=== PATIENT | male | born 1980 | race Caucasian/White ===

== ENCOUNTER 2023-07-07 10:47 | Outpatient (REF) | payer MEDICAID, SELFPAY ==
[2023-07-07 12:55] LABS: MANUAL DIFF FLAG NO
[2023-07-07 13:06] LABS: Estimated Average Glucose 126 mg/dL
[2023-07-07 13:08] LABS: Basophils Absolute Auto 0.1 X10*3/uL (0.0-0.2); Basophils Percent Auto 0.8 % (0-2); Eosinophils Absolute Auto 0.1 X10*3/uL (0.0-0.4); Eosinophils Percent Auto 1.4 % (0-4); Hematocrit 47.6 % (42.0-52.0); Hemoglobin 15.9 g/dl (14.0-18.0); Imm Gran Abs Auto 0.03 X10*3/uL (0.00-0.03); Imm Gran Pct Auto 0.4 % (0.0-0.4); Lymphocytes Absolute Auto 2.7 X10*3/uL (1.2-4.9); Lymphocytes Percent Auto 34.1 % (20-40); Mean Corpuscular HGB Conc 33.4 g/dl (31.0-36.0); Mean Corpuscular Hemoglobin 31.4 pg (27.0-33.0); Mean Corpuscular Volume 93.9 fL (80.0-98.0); Mean Platelet Volume 11.3 fL (9.4-12.4); Monocytes Percent Auto 12.3 % (2-11); Platelet Count 169 X10*3/uL (160-400); Red Blood Count 5.07 X10*6/uL (4.60-5.80); Red Cell Distribution Width 12.3 % (11.0-16.0); White Blood Count 7.8 X10*3/uL (4.8-10.8)
[2023-07-07 13:26] LABS: Alanine Aminotransferase 45 U/L (0-40); Albumin Level 4.3 g/dL (3.5-5.0); Alkaline Phosphatase 86 U/L (39-117); Anion Gap 11 (12-20); Aspartate Amino Transferase 31 U/L (5-37); Bilirubin Total 0.7 mg/dL (0.0-1.0); Blood Urea Nitrogen 13 mg/dL (9-16); Calcium 9.6 mg/dL (8.4-10.2); Carbon Dioxide 27 mmol/L (22-29); Chloride 106 mmol/L (96-108); Cholesterol 204 mg/dL (<200); Estimated Glomerular Filt Rate > 60; Glucose Random 111 mg/dL (60-115); HDL Cholesterol 43 mg/dL (>40); LDL Cholesterol Calculated 143 mg/dL (<100); Potassium 4.3 mmol/L (3.3-5.1); Sodium 140 mmol/L (135-145); Total Protein 8.2 g/dL (6.5-8.0); Triglycerides 94 mg/dL (<150)
[2023-07-07 13:43] LABS: TSH reflex Free T4 1.33 uIU/mL (0.32-4.0)
[2023-07-07 13:51] LABS: PSA,Total (Free>4and<10) 0.45 ng/mL (0.00-4.00)
[2023-07-08 08:10] LABS: HIV AB/AG Nonreactive (Nonreactive); HIV Num 1 0.07 S/CO (0.00-0.99); ~HepC Num1 0.19 S/CO (0.00-0.79); ~Hepatitis C Antibody Nonreactive (Nonreactive)
== END 2023-07-07 10:48 | disposition home or self-care (01) ==
LOC: HO.CHCLDS 10:47
PROVIDERS: Visit Provider Family Medicine
DX: E66.01 Morbid (severe) obesity due to excess calories (principal); Z13.29 Encounter for screening for other suspected endocrine disorder; Z12.5 Encounter for screening for malignant neoplasm of prostate
CPT/HCPCS: 36415; 80053; 80061; 83036; 84153; 84443; 85025; 86803; 87389

== ENCOUNTER 2023-09-01 08:07 | Outpatient (AMB) | payer BC, SELFPAY ==
[2023-09-01 08:19] VITALS: BMI 53.1
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
== END 2023-09-01 08:34 | disposition home or self-care (01) ==
PROVIDERS: Visit Provider Orthopaedic Surgery
DX: M25.562 Pain in left knee (principal)
CPT/HCPCS: 99203

== ENCOUNTER 2023-09-01 09:01 | Outpatient (REF) | payer MEDICAID, SELFPAY ==
--- NOTE | ~2023-09-01 | XR_ITS ---
EXAMINATION: Bilateral knee x-rays CLINICAL INFORMATION: Pain in both knees COMPARISON: None. TECHNIQUE: 3 views of each knee FINDINGS: Right knee: There are marginal osteophytes about all compartments without slight joint space narrowing of the medial compartment. No effusion. Left knee: Small marginal osteophytes about the lateral compartment and patellofemoral compartment without joint space narrowing. Small effusion. XR/XR knee LT 3V IMPRESSION: RIGHT KNEE: Mild osteoarthritis. LEFT KNEE: Mild osteoarthritis. Small effusion
--- NOTE | ~2023-09-01 | XR_ITS ---
EXAMINATION: Bilateral knee x-rays CLINICAL INFORMATION: Pain in both knees COMPARISON: None. TECHNIQUE: 3 views of each knee FINDINGS: Right knee: There are marginal osteophytes about all compartments without slight joint space narrowing of the medial compartment. No effusion. Left knee: Small marginal osteophytes about the lateral compartment and patellofemoral compartment without joint space narrowing. Small effusion. XR/XR knee RT 3V IMPRESSION: RIGHT KNEE: Mild osteoarthritis. LEFT KNEE: Mild osteoarthritis. Small effusion
== END 2023-09-01 09:02 | disposition home or self-care (01) ==
LOC: HO.HOSX 09:01
PROVIDERS: Visit Provider Orthopaedic Surgery
DX: M17.0 Bilateral primary osteoarthritis of knee (principal)
CPT/HCPCS: 73562; 99202

== ENCOUNTER 2024-06-02 15:48 | Outpatient (REF) | payer BC, SELFPAY ==
--- OUTSIDE RECORDS SUMMARY | 2024-06-02 15:49 | XMS_ITS | Clinical Summary ---
Author Organization [employer] Address [address] [facility] [address] [place] [address] Care Team Providers Care Facilities Engineer Name Role Phone Barbie Stauffer MD Primary Care Provider [phone] Allergies No known active allergies Medications LORazepam (Ativan) 1 MG tablet Take 1 tablet (1 mg) by mouth 1 (one) time for 1 dose. 1 tablet 07/07/2023 Active Semaglutide-Weig ht Management (Wegovy) 0.25 MG/0.5ML solution auto-injectorInd ications:Morbid obesity (CMS/HCC) Inject 0.25 mg under the skin 1 (one) time per week. 2 mL 07/07/2023 Active Active Problems Problem Noted Date Diagnosed Date Morbid obesity 07/07/2023 Assessment & Plan (07/07/2023 9:36 PM EDT): Discussed calorie deficit, recommended reduction of 20-30% of maintenance calories; machine shop apprentice referral offered. Recommended to decrease soda and sugary beverage consumption. Recommended at least 20 g per meal of protein to assist with satiety. Recommended at least 150 min/week of moderate intensity exercise. Ordered referral to machine shop apprentice Labs: CBC, Comprehensive Metabolic Panel, Lipid panel, A1C, TSH, HIV, Hep C Obstructive sleep apnea syndrome 07/07/2023 Assessment & Plan (07/07/2023 9:37 PM EDT): Referred for sleep test Chronic pain of both knees 07/07/2023 Overview (07/07/2023): Reports following with [facility] Assessment & Plan (07/07/2023 9:38 PM EDT): Reports following with [facility]. Prescribed Lorazepam and Wegovy for continuous of weight loss. Other chest pain 07/07/2023 Assessment & Plan (07/07/2023 10:03 AM EDT): Intermittent episodes of chest pain when he is resting after work but associated with R hand numbness Encounters Date Type Department Care Team Description 06/02/2024 3:00 PM EST Office Visit [facility] PEDS [address] [place] [address] Kidney stones (Primary Dx); Gross hematuria 06/02/2024 Travel 06/02/2024 Telephone [facility] MEDICINE [address] [place], [place] [phone] Barbie Stauffer MD Nurse Triage (/) from Last 3 Months Immunizations Name Administration Dates Next Due Influenza injectable quadrivalent preservative f ree 06/13/2015 Tdap 06/13/2015 Social History Tobacco Use Types Packs/Day Years Used Date Smoking Tobacco: Former Cigarettes 2 10 Passive Smoke Exposure: Never Smokeless Tobacco: Never Tobacco Cessation:Counseling Given: Not Answered Depression Answer Date Recorded Patient Health Questionnaire-9 Score 2 07/07/2023 Patient Health Questionnaire-9 Score 2 07/07/2023 Last PHQ-9: Questionnaire Data Not on file 0 07/07/2023 Housing Stability Answer Date Recorded What is your housing situation today? I have saúl cantu 07/07/[address] you li ve. Do you have problems with any of the following? None of the above 07/07/2023 Food Insecurity Answer Date Recorded Within the past 12 months, y ou worried that your food would run out before you got money to buy more: Never True 07/07/2023 Within the past 12 months,th e food you bought just didn't last and you didn't have enough money to get more: Never True Transportation Answer Date Recorded In the past 12 months, has l ack of transportation kept you from medical appts, meetings, work or from getting things needed for daily living? No 07/07/2023 Utilities Answer Date Recorded In the past 12 months, has t he electric, gas, oil or water company threatened to shut off services in your home? No 07/07/2023 Depression Answer Date Recorded Patient Health Questionnaire-2 Score 2 07/07/2023 Sex and Gender Information Value Date Recorded Sex Assigned at Male 02/16/2022 10:18 AM EDT Legal Sex Male 10:18 AM EDT Gender Identity Male 02/16/2022 10:18 AM EDT Sexual Orientation Straight 02/16/2022 10 :18 AM EDT Last Filed Vital Signs Vital Sign Reading Time Taken Comments Blood Pressure 142/87 06/02/2024 3:25 PM EST Pulse 80 06/02/2024 3:25 PM EST Temperature 36.2 ??C (97.1 ??F) 06/02/2024 3:25 PM ES T Respiratory Rate 20 06/02/2024 3:25 PM EST Oxygen Saturation 96% 06/02/2024 3:25 PM EST Inhaled Oxygen Concentration - - Weight 136 kg (299 lb) 06/02/2024 3:25 PM EST Height 167.6 cm (5' 6 ) 06/02/2024 3:25 PM EST Body Mass Index 48.26 06/02/2024 3:25 PM EST Plan of Treatment Health Maintenance Due Date Last Done Comments Alcohol/Substance Use Screening 1993 Family Planning (PISQ) 1996 Hepatitis B Vaccines (1 of 3 - 19+ 3-dose series) 2000 COVID-19 Vaccine (2023-2 5 season) 2023 Influenza Vaccine (#1) 2023 06/13/2015 Depression Screening 07/06/2024 07/07/2023, 07/07/2023 Diabetes: Hemoglobin A1C 07/06/2024 07/07/2023 SDOH Screening 07/06/2024 07/07/2023 Tobacco Screening 07/06/2024 07/07/2023 DTaP/Tdap/Td Vaccines (2 - T d or Tdap) 06/13/2025 06/13/2015 Lipid Panel 07/06/2028 07/07/2023 Zoster Vaccines (1 of 2) 07/17/2031 RSV Patients and Patients Aged 60 years or older (1 - 1-dose 75+ series) 2056 HIV Screening Completed 07/07/2023 Hepatitis C Screening Completed 07/07/2023 HIB Vaccines Aged Out No longer eligi ble based on patient's age to complete this topic HPV Vaccines Aged Out No longer eligi ble based on patient's age to complete this topic Hepatitis A Vaccines Aged Out No long er eligible based on patient's age to complete this topic IPV Vaccines Aged Out No longer eligi ble based on patient's age to complete this topic Meningococcal Vaccine Aged Out No marlo laci eligible based on patient's age to complete this topic Pneumococcal Vaccine: Pediatrics (0 to 5 Years) and At-Risk Patients (6 to 49) Years) Aged Out No longer eligible b ased on patient's age to complete this topic RSV under 20 months Aged Out No longe r eligible based on patient's age to complete this topic Rotavirus Vaccines Aged Out No longer eligible based on patient's age to complete this topic Procedures Procedure Name Priority Date/Time Associated Diagnosis Comments HEPATITIS C AB W/REFL TO HCV RNA, QN, PCR Routine 07/07/2023 10:50 AM EDT Morbid obesity (CMS/HCC) HIV 1/2 ANTIGEN/ANTIBODY, FOURTH GENERATION W/RFL Routine 07/07/2023 10:50 AM EDT Morbid obesity (CMS/HCC) HEMOGLOBIN A1C Routine 07/07/2023 10:50 AM EDT Morbid obesity (CMS/HCC) Screening for endocrine disorder LIPID PANEL, STANDARD Routine 07/07/2023 10:50 AM EDT Morbid obesity (CMS/HCC) from Last 3 Months or Most Recently Relevant to Health Maintenance Results * Hepatitis C Antibody with Reflex to HCV, RNA, Quantitative, Real-Time PCR (07/07/2023 10:50 AM EDT) Hepatitis C Antibody Nonreactive Nonreactive [facility] Comment:Antibodies to HCV no t detected; does not exclude early acuteHCV infection. Blood Venous blood specimen / Unknown 07/07/2023 10:50 AM EDT 07/07/2023 1:02 PM EDT us Barbie Stauffer MD LAB BLOOD ORDERABLES Final Re sult [facility] [address] [place] [phone] * HIV-1/2 Antigen and Antibodies, Fourth Generation, with Reflexes (07/07/2023 10:50 AM EDT) HIV AB/AG Nonreactive Nonreactive [facility] Comment:HIV-1 p24 Ag and/or HIV-1/HIV-2 Ab not detected.A test result that is nonreactive does not exclude thepossibility of exposure to or infection with HIV-1 and/orHIV-2. Nonreactive results in this assay for individualswith prior exposure to HIV-1 and/or HIV-2 may be due toantigen and antibody levels that are below the limit ofdetection of this assay.The [employer] HIV Ag/Ab Combo assay result andsupplemental assay results should be interpreted inconjunction with the patient's clinical presentation,history and other laboratory results. If the results areinconsistent with clinical evidence, additional testing issuggested to confirm the result. Blood Venous blood specimen / Unknown 07/07/2023 10:50 AM EDT 07/07/2023 1:02 PM EDT us Barbie Stauffer MD LAB BLOOD ORDERABLES Final Re sult [facility] [address] [place] [phone] * Hemoglobin A1c (07/07/2023 10:50 AM EDT) Hemoglobin A1c 6.0 <6.0 % [facility] Comment:Hemoglobin A1C Refer ence Range Adults: 4.8 - 6.0 % Non diabetic: < 6.0 % Goal: < 7.0 %Additional Action Suggested: > 8.0 %Note: Hemoglobin A1c results are invalid for patients with abnormal amounts of HbF. Blood transfusions may impact the HbA1c concentration in the patient sample. Estimated Average Glucose 126 mg/dL [facility] Comment:eAG = Estimated ave rage glucose which is %A1C expressed asaverage glucose, using the formula of the L5D-AhmsbecNonfoua Glucose study (ADAG), Diabetes Care, Vol.31,#8,Nov. 2007 Blood Venous blood specimen / Unknown 07/07/2023 10:50 AM EDT 07/07/2023 12:52 PM EDT us Barbie Stauffer MD LAB BLOOD ORDERABLES Final Re sult Performing Organization Address [facility] Co de Phone Number [facility] [address] [place] [phone] * (ABNORMAL) Lipid Panel, Standard (07/07/2023 10:50 AM EDT) Triglycerides 94 <150 mg/dL [facility] Comment:Desirable Triglyceri de: less than 150 mg/dLBorderline High Triglyceride 150-199 mg/dLHigh Triglyceride: 200-499 mg/dLVery High Triglyceride: greater than or equal to 5OO mg/dL Cholesterol 204(H) <200 mg/dL [facility] Comment:Desirable Cholestero l: less than 200 mg/dLBorderline High Cholesterol: 200-239 mg/dLHigh Cholesterol: greater than 239 mg/dL LDL Cholesterol Calculated 143(H) <100 mg/dL [facility] Comment:Desirable LDL: less than 100 mg/dLNear Optimal/Above Optimal LDL: 110- 129 mg/dLBorderline High LDL: 130-159 mg/dLHigh LDL: 160-189 mg/dLVery High LDL: greater than or equal to 190 mg/dL HDL Cholesterol 43 >40 mg/dL [facility] Comment:Desirable HDL: great er than 40 mg/dL Note: This HDL assay may give artificially low results in patients with liver disease. Blood Venous blood specimen / Unknown 07/07/2023 10:50 AM EDT 07/07/2023 12:57 PM EDT us Barbie Stauffer MD LAB BLOOD ORDERABLES Final Re sult Performing Organization Address [facility]/ZIP Co de Phone Number [facility] [address] [place] [phone] from Last 3 Months or Most Recently Relevant to Health Maintenance Insurance BCBS PPO Care Teams Facilities Engineer Relationship Specialty Start Date End Date Barbie Stauffer MD [address] [place] [id number] PCP - General Family Medicine 07/07/23 Alvin Davenport [address], [address] [place] [address] Consulting Physician Orthopaedic Surgery 07/07/23
--- OUTSIDE RECORDS SUMMARY | 2024-06-02 15:49 | XMS_ITS | Clinical Summary ---
Author Organization [facility] it Address [address] [place] [address] Care Team Providers Care Office Helper Clerical Name Role Phone Unavailable Primary Care Provider Unavailabl e Social History Tobacco Use Types Packs/Day Years Used Date Smoking Tobacco: Never Assessed Sex and Gender Information Value Date Recorded Sex Assigned at Not on file Legal Sex Male 1:37 PM EDT Gender Identity Not on file Sexual Orientation Not on file Plan of Treatment Health Maintenance Due Date Last Done Comments DTaP,Tdap,and Td Vaccines (1 - Tdap) 2000 Hepatitis B Vaccines (1 of 3 - 19+ 3-dose series) 2000 Cholesterol Screening (Lipid Panel) 11/10/2023 Depression Screening 11/10/2023 HIV Screening 11/10/2023 Hepatitis C Screening 11/10/2023 Social Influencers of Health Screening 11/10/2023 COVID-19 Vaccine ( - 2023-2 5 season) 2023 Influenza Vaccine (#1) 2023 HIB Vaccines Aged Out No longer eligi [...] on patient's age to complete this topic MMR Vaccines Aged Out No longer eligi ble based on patient's age to complete this topic Meningococcal ACWY Vaccine Aged Out N o longer eligible based on patient's age to complete this topic Meningococcal B Vacine Aged Out No lo nger eligible based on patient's age to complete this topic Pneumococcal Vaccine: Pediat rics (0 to 5 Years) and At-Risk Patients (6 to 64 Years) Aged Out No longer eligible b ased on patient's age to complete this topic RSV Immunization Patients Un deepa 20 months Aged Out No longer eligible b ased on patient's age to complete this topic Varicella Vaccines Aged Out No longer eligible based on patient's age to complete this topic
--- OUTSIDE RECORDS SUMMARY | 2024-06-02 15:49 | XMS_ITS | Encounter Summary ---
Author Organization [employer] Address [address] [facility] [address] [place] [address] Care Team Providers Care Hat Renovator Name Role Phone Barbie Stauffer MD Primary Care Provider [phone] Reason for Visit * Reason Onset Date Comments Nurse Triage 06/02/2024 Encounter Details Date Type Department Care Team (Late st Contact Info) Description 06/02/2024 Telephone [facility] MEDICINE [address] [place] [address] Barbie Stauffer MD [address] [place] [address] Nurse Triage (/) Social History Tobacco Use Types Packs/Day Years Used Date Smoking Tobacco: Former Cigarettes 2 10 Passive Smoke Exposure: Never Smokeless Tobacco: Never Depression Answer Date Recorded Patient Health Questionnaire-9 Score 2 07/07/2023 Patient Health Questionnaire-9 Score 2 07/07/2023 Last PHQ-9: Questionnaire Data Not on file 0 07/07/2023 Housing Stability Answer Date Recorded What is your housing situation today? I have saúlmeche cantu 07/07/[address] you [...] Orientation Straight 02/16/2022 10 :18 AM EDT documented as of this encounter Miscellaneous Notes * Telephone Encounter - Angie Dye RN - 06/02/2024 2:09 PM EST Call returned to Jose Medina to triage below. Reports having blood on tissue after BM. Per pt last episode of blood on tissue last week. Per pt having lower back pain. Per pt also having bloody urine 1 week ago. Reports having foul odor to urine. Denies any N/V or fever. PT advised of disposition, agrees to [facility] appt today. Reviewed home care advise, ER precautions and reasons to call back. Protocol Used: Urine - Blood In (Adult) Protocol-Based Disposition: See in Office or Video Visit Today Future Appointments Date Time Provider Department Center 06/02/2024 3:00 PM [facility] Insurance verified as active per Real Time Eligibility in [facility]. Positive Triage Questions: * Side (flank) or back pain present * Pain or burning with passing urine (urination) * All higher-acuity triage questions were negative Care Advice Discussed: * Reasons To Call Back - Fever or pain occurs - You become worse * Telephone Encounter - Elsie Glynn - 06/02/2024 1:44 PM EST Symptoms: Stools - Blood Mixed In, Back Pain (lower) - Not From Injury, Urine - Blood In Outcome: Talk to a nurse or provider within 15 minutes Reason: Large amount of blood The caller accepted this outcome. [phone] romanian documented in this encounter Plan of Treatment Not on file documented as of this encounter Visit Diagnoses Not on filedocumented in this encounter Additional Health Concerns Assessment Noted Time PHQ-9 Depression Total Score: 2 07/07/19 24 9:26 AM EDT documented as of this encounter Care Teams Hat Renovator Relationship Specialty Start Date End Date Barbie Stauffer MD [address] [place] [address] PCP - General Family Medicine 07/07/23 Alvin Davenport [address], [address] [place] [address] Consulting Physician Orthopaedic Surgery 07/07/23 documented as of this encounter
--- OUTSIDE RECORDS SUMMARY | 2024-06-02 15:49 | XMS_ITS | Encounter Summary ---
Author Organization [employer] Address [address] [place] [address] Care Team Providers Care Religious Ritual Slaughterer Name Role Phone Barbie Stauffer MD Primary Care Provider [phone] Encounter Details Date Type Department Care Team (Latest Contact Info) Description 06/02/2024 Travel Social History Tobacco Use Types Packs/Day Years [...] AM EDT documented as of this encounter Plan of Treatment Not on file documented as of this encounter Visit Diagnoses Not on filedocumented in this encounter Additional Health Concerns Assessment Noted Time PHQ-9 Depression Total Score: 2 07/07/19 9:26 AM EDT documented as of this encounter Care Teams Religious Ritual Slaughterer Relationship Specialty Start Date End Date Barbie Stauffer MD [address] [place] [phone] PCP - General Family Medicine 07/07/23 Alvin Davenport [address] [place] [address] Consulting Physician Orthopaedic Surgery 07/07/23 documented as of this encounter
--- OUTSIDE RECORDS SUMMARY | 2024-06-02 15:49 | XMS_ITS | Encounter Summary ---
Author Organization [employer] Address [address] [facility] [address] [place] [address] Care Team Providers Care Wire Rigger Name Role Phone Barbie Stauffer MD Primary Care Provider [phone] Encounter Details Date Type Department Care Team (Late st Contact Info) Description 06/02/2024 3:00 PM EST Office Visit [facility] MED & PEDS [address] [place], [place] [phone] Kidney stones (Primary Dx); Gross hematuria Social History Tobacco Use Types Packs/Day Years [...] AM EDT documented as of this encounter Last Filed Vital Signs Vital Sign Reading [...] Mass Index 48.26 06/02/2024 3:25 PM EST documented in this encounter Plan of Treatment Scheduled Orders Name Type Priority Associated Diagnoses Order Schedule Basic Metabolic Panel Lab Routine Kidney stones Expected: 06/02/2024 (Approximate), Expires: 06/02/2025 CBC auto differential Lab Routine Kidney stones Expected: 06/02/2024 (Approximate), Expires: 06/02/2025 TSH W/Reflex to FT4 Lab Routine Kidney stones Expected: 06/02/2024 (Approximate), Expires: 06/02/2025 Hepatic Function Panel Lab Routine Kidney stones Expected: 06/02/2024 (Approximate), Expires: 06/02/2025 Uric acid Lab Routine Kidney stones Expected: 06/02/2024 (Approximate), Expires: 06/02/2025 Cytology, urine Pathology and Cytology Routine Gross hematuria Expected: 06/02/2024 (Approximate), Expires: 06/02/2025 documented as of this encounter Visit Diagnoses Diagnosis Kidney stones- Primary Calculus of kidney Gross hematuria documented in this encounter Additional Health Concerns Assessment Noted Time PHQ-9 Depression Total Score: 2 07/07/19 24 9:26 AM EDT documented as of this encounter Care Teams Wire Rigger Relationship Specialty Start Date End Date Barbie Stauffer MD [address] [place] [phone] PCP - General Family Medicine 07/07/23 Alvin Davenport [address], [address] [place] [address] Consulting Physician Orthopaedic Surgery 07/07/23 documented as of this encounter
[2024-06-02 17:55] LABS: MANUAL DIFF FLAG NO
[2024-06-02 17:57] LABS: Urine Cytology See Pathology rpt
[2024-06-02 17:59] LABS: Basophils Percent Auto 0.4 % (0-2); Eosinophils Absolute Auto 0.2 X10*3/uL (0.0-0.4); Eosinophils Percent Auto 1.5 % (0-4); Hematocrit 44.2 % (42.0-52.0); Hemoglobin 15.1 g/dl (14.0-18.0); Imm Gran Abs Auto 0.02 X10*3/uL (0.00-0.03); Imm Gran Pct Auto 0.2 % (0.0-0.4); Lymphocytes Absolute Auto 2.7 X10*3/uL (1.2-4.9); Lymphocytes Percent Auto 26.4 % (20-40); Mean Corpuscular HGB Conc 34.2 g/dl (31.0-36.0); Mean Corpuscular Hemoglobin 31.9 pg (27.0-33.0); Mean Corpuscular Volume 93.4 fL (80.0-98.0); Mean Platelet Volume 11.3 fL (9.4-12.4); Monocytes Percent Auto 9.7 % (2-11); Neutrophils Absolute Auto 6.3 x10*3/uL (2.0-8.3); Neutrophils Percent Auto 61.8 % (45-73); Platelet Count 176 X10*3/uL (160-400); Red Blood Count 4.73 X10*6/uL (4.60-5.80); Red Cell Distribution Width 12.1 % (11.0-16.0); White Blood Count 10.2 X10*3/uL (4.8-10.8)
[2024-06-02 18:18] LABS: Alanine Aminotransferase 42 U/L (0-40); Albumin Level 3.9 g/dL (3.5-5.0); Anion Gap 10 (12-20); Aspartate Amino Transferase 32 U/L (5-37); Bilirubin Direct 0.1 mg/dL (0.0-0.5); Bilirubin Total 0.4 mg/dL (0.0-1.0); Blood Urea Nitrogen 15 mg/dL (9-16); Calcium 9.1 mg/dL (8.4-10.2); Carbon Dioxide 26 mmol/L (22-29); Chloride 106 mmol/L (96-108); Estimated Glomerular Filt Rate > 60; Glucose Random 120 mg/dL (60-115); Potassium 3.8 mmol/L (3.3-5.1); Sodium 138 mmol/L (135-145); Total Protein 7.9 g/dL (6.5-8.0); Uric Acid 6.6 mg/dL (3.4-7.0)
[2024-06-02 18:33] LABS: Alkaline Phosphatase 86 U/L (39-117)
[2024-06-02 18:36] LABS: TSH reflex Free T4 2.67 uIU/mL (0.32-4.0)
== END 2024-06-02 15:49 | disposition home or self-care (01) ==
LOC: HO.CHCLDS 15:48
PROVIDERS: Visit Provider Pediatrics
DX: R31.0 Gross hematuria (principal); N20.0 Calculus of kidney
CPT/HCPCS: 36415; 80048; 80076; 84443; 84550; 85025; 88112

== ENCOUNTER 2025-03-28 10:42 | Outpatient (REF) | payer MEDICAID, SELFPAY ==
[2025-03-28 15:20] LABS: Appearance Urine Clear; Glucose Urine UA Negative (Negative); PH 6.0 (5.0-9.0); Specific Gravity - Urine 1.020 (1.005-1.025)
[2025-03-28 16:26] LABS: Anion Gap 12 (12-20); Blood Urea Nitrogen 16 mg/dL (9-16); Calcium 9.1 mg/dL (8.4-10.2); Carbon Dioxide 24 mmol/L (22-29); Chloride 107 mmol/L (96-108); Estimated Glomerular Filt Rate > 60; Potassium 4.0 mmol/L (3.3-5.1); Sodium 139 mmol/L (135-145)
== END 2025-03-28 10:43 ==
LOC: HO.CHCLDS 10:42
PROVIDERS: Visit Provider Internal Medicine
DX: R10.A1 Flank pain, right side (principal)
CPT/HCPCS: 36415; 80048; 81001